=== PATIENT | female | born 1930 | race Caucasian/White ===

== ENCOUNTER 2018-03-15 16:27 | Emergency (ER) | payer OTHER ==
[~2018-03-15] VITALS: Ht 154.9 cm; Wt 61.2 kg
[~2018-03-15 16:27] MED LIST: HYDROCHLOROTH12.5 MG PO
[2018-03-15] MEDS ORDERED: ALPRAZOLAM0.25 MG (16:54)
[2018-03-15] MEDS ORDERED: AVAPRO300 MG (16:54)
[2018-03-15] MEDS ORDERED: IRON1TAB4 (16:54)
[2018-03-15] MEDS ORDERED: FLUOXETINE HCL20 MG (16:55)
== END 2018-03-15 19:41 | disposition home or self-care (01) ==
LOC: ER 16:27
DX: R19.7 Diarrhea, unspecified (principal)

== ENCOUNTER 2018-11-30 23:18 | Emergency (ER) | payer OTHER ==
[~2018-11-30] VITALS: Ht 180.3 cm; Wt 66.2 kg
[~2018-11-30 23:18] MED LIST changes: +ALPRAZOLAM0.25 MG; +AVAPRO300 MG; +FLUOXETINE HCL20 MG; +IRON1TAB4
[2018-12-01] MEDS ORDERED: PEPCID AC20 MG PO (02:14)
== END 2018-12-01 02:34 | disposition home or self-care (01) ==
LOC: ER 23:18
DX: K29.60 Other gastritis without bleeding (principal)